=== PATIENT | female | born 1980 | race Caucasian/White ===

== ENCOUNTER 2020-10-01 18:48 | Emergency (ER) | payer OTHER ==
[~2020-10-01] VITALS: Ht 162.6 cm; Wt 83.0 kg
[2020-10-01 19:33] LABS: BASOPHILS % 0.4 % (0.0-2.0); EOSINOPHILS % 1.9 % (0.0-5.0); HEMATOCRIT. 31.4 % (36.0-48.0); HEMOGLOBIN. 9.5 g/dL (12.0-16.0); LYMPHOCYTES % 26.7 % (20.0-50.0); MEAN CORPUSCULAR HEMOGLOBIN 20.2 pg (28.0-32.0); MEAN CORPUSCULAR VOLUME 67.1 fL (81.0-99.0); MEAN PLATELET VOLUME 7.7 fl (7.4-10.4); MONOCYTES % 6.5 % (2.0-8.0); NEUTROPHILS % 64.5 % (40.0-76.0); PLATELET 350 x1000/uL (130-400); RED BLOOD CELL COUNT 4.69 mill/uL (4.2-5.4)
[2020-10-01 19:36] LABS: CHLORIDE 109 mEq/L (98-107)
[2020-10-01 19:39] LABS: PROTHROMBIN TIME 10.5 sec (9.6-11.0)
[2020-10-01 19:40] LABS: ETHANOL BLOOD < 10 mg/dL
[2020-10-01 19:43] LABS: LDL CHOLESTEROL 86 mg/dL (5-100)
[2020-10-01 19:47] LABS: HCG SCREEN NEGATIVE
[2020-10-01 19:57] LABS: PLATELET ESTIMATE NORMAL
[2020-10-01] MEDS ORDERED: PROCHLORPERAZINE 10MG/2ML VIAL IV PRN (21:00)
[2020-10-01] MEDS ORDERED: KETOROLAC 15MG/ML VIAL IV NR (21:00)
[2020-10-01] MEDS ORDERED: SODIUM CHLORIDE 0.9% 1,000 ML IV ONE (21:00)
[2020-10-01] MEDS ORDERED: DIPHENHYDRAMINE 50MG/ML VIAL IV NR (21:00)
[2020-10-01] MEDS ORDERED: ONDANSETRON HCL 4MG/2ML INJ IV NR (22:12)
[2020-10-01] MEDS ORDERED: MORPHINE SULFATE 4 MG/ML CPJ (NOT FOR IM USE) IV NR (22:12)
[2020-10-01] MEDS ORDERED: IOHEXOL-350 100 ML BOTTLE ONE (23:14)
[2020-10-01 23:26] VITALS: BP 135/93
== END 2020-10-01 23:29 | disposition home or self-care (01) ==
LOC: ER 18:48 → CANBEDREQ 10-02 01:27
DX: R51.9 Headache, unspecified (principal); R47.81 Slurred speech; R20.0 Anesthesia of skin; R42 Dizziness and giddiness; Z91.81 History of falling
CPT/HCPCS: 36415; 70450; 70496; 71045; 80053; 80320; 82962; 83721; 84484; 84703; 85025; 85610; 93005; 96361; 96374; 96375; 99285; J1200; J1885; J2270; J2405; Q9967; G0480